=== PATIENT | male | born 1985 ===

== ENCOUNTER 2018-01-01 14:56 | Emergency (ER) | payer OTHER, SELFPAY ==
[2018-01-01 14:57] VITALS: BP 160/106; PULSE 99; RESP 20; TEMP 36.8; O2SAT 99
--- NOTE | 2018-01-01 15:04 | ED.MEDCLEAR ---
HPI - Medical Clearance <ROSALVA Pike - Last Filed: 01/01/18 17:10> General Chief complaint: Medical Clearance Stated complaint: abd pain Time Seen by Provider: 01/01/18 15:05 Source: patient and other (with police in hand cuffs) Mode of arrival: ambulatory Limitations: no limitations History of Present Illness HPI Narrative: shortly after being arrested pt started c/o abd pain pt states his stomach started hurting a few minutes ago, describes it as sharp, and it is his entire R side complaint: medical clearance requested Onset (ago): minute(s) Reason for Medical Clearance: other (half-way arrest) Place: other Traumatic Symptoms: denies traumatic injury Associated Symptoms: other (abd pain) Treatments Prior to Arrival: none Allergies Allergy/AdvReac Type Severity Reaction Status Date / Time No Known Drug Allergies Allergy Verified 01/01/18 14:57 Review of Systems <ROSALVA Pike - Last Filed: 01/01/18 17:10> Constitutional Reports as per HPI and Reports system reviewed and no additional complaints, except as docu Cardiovascular Denies chest pain and Denies dyspnea Respiratory Denies dyspnea Gastrointestinal Gastrointestinal: Reports as per HPI, Reports abdominal pain, Denies melena, Denies hematochezia, Denies constipation, Denies diarrhea and Reports vomiting (vomited yesterday, none today and says he ate) Genitourinary Denies dysuria (hawk with urination and that started yesterday) and Denies flank pain Musculoskeletal Denies back pain Exam <ROSALVA Pike - Last Filed: 01/01/18 17:10> Initial Vital Signs Initial Vital Signs: Vital Signs Temperature 98.2 F 01/01/18 14:57 Pulse Rate 99 H 01/01/18 14:57 Respiratory Rate 20 01/01/18 14:57 Blood Pressure 160/106 H 01/01/18 14:57 Pulse Oximetry 99 01/01/18 14:57 Const General: cooperative, healthy appearing, comfortable, well developed and well groomed Nutritional Appearance: average body habitus Orientation: alert, awake and oriented x3 HENMT Head: normal to inspection and normocephalic Ears: hearing grossly normal bilaterally, external ears normal, TM's normal bilaterally and mastoids normal Nose: external nose normal and nares normal Face and sinus: normal facial exam, sinuses nontender and face symmetric Mouth: oral mucosae normal, lip normal, tongue normal, oropharynx normal and moist mucous membranes Teeth and gingiva: dentition normal and gingiva normal Throat: posterior oropharynx normal, tonsils normal and uvula midline Eyes General: appearance normal, both eyes and all related structures Visual Jauregui: normal visual jauregui by confrontation Eyelids: eyelids normal Conjunctivae: conjunctivae normal Sclera: sclerae normal Pupils: PERRL EOM: EOM intact bilaterally Neck Neck: normal visual inspection, full ROM, no meningeal signs, trachea midline, supple and No lymphadenopathy Chest Chest: normal inspection of the chest Resp Effort & Inspection: normal respiratory effort and able to speak in complete sentences Auscultation: clear to auscultation bilaterally Cardio Rate: regular rate Rhythm: regular rhythm Heart Sounds: S1 normal and S2 normal GI Inspection: normal to inspection Palpation: soft Back/Spine/Pelvis Cervical Spine: cervical ROM normal Thoracic/Lumbar Spine: thoraco-lumbar ROM normal Skin General: no rashes or lesions noted, elasticity normal, turgor normal and dry skin Neuro General: alert, awake, oriented x3 and meningeal signs present Cognition: normal cognition Speech: speech normal Gait: normal gait Motor: muscle tone normal throughout Sensory Exam: no sensory deficits noted Extrem General: normal to inspection and full ROM Psych Appearance: grossly normal and well kempt Mental Status: mental status grossly normal Speech and Movement: speech and movement normal Mood: congruent mood Affect: normal affect Attitude: cooperative Thought Process: normal Thought Content: normal Judgment: judgment good <Nadege Campos MD - Last Filed: 01/01/18 20:18> Initial Vital Signs Initial Vital Signs: Vital Signs Temperature 98.2 F 01/01/18 14:57 Pulse Rate 99 H 01/01/18 14:57 Respiratory Rate 20 01/01/18 14:57 Blood Pressure 160/106 H 01/01/18 14:57 Pulse Oximetry 99 01/01/18 14:57 MDM - Medical Clearance <ROSALVA Pike - Last Filed: 01/01/18 17:10> Differential Diagnosis Likely urinary tract infection and other (abd pain, malingering, substance abuse, psychosomatic, pysch, gastroenteritis, medical clearance) Lab Data Urine Dip Bedside Urine Glucose Negative Bedside Urine Bilirubin - Negative Bedside Urine Ketone - Negative Urine Specific [place] 1.015 Bedside Urine Occult Blood - Negative Bedside Urine pH 7.5 Bedside Urine Protein - Negative Bedside Urine Urobilinogen - Negative Bedside Urine Nitrite - Negative Bedside Urine Leukocytes - Negative Esterase <Nadege Campos MD - Last Filed: 01/01/18 20:18> Lab Data Urine Dip Bedside Urine Glucose Negative Bedside Urine Bilirubin - Negative Bedside Urine Ketone - Negative Urine Specific [place] 1.015 Bedside Urine Occult Blood - Negative Bedside Urine pH 7.5 Bedside Urine Protein - Negative Bedside Urine Urobilinogen - Negative Bedside Urine Nitrite - Negative Bedside Urine Leukocytes - Negative Esterase Discharge Plan Departure Patient Disposition: Home Clinical Impression: Normal exam, Medical clearance for incarceration Discharge Date/Time: 01/01/18 15:19 Interventions: ED Discharge Assessment Last Done: 01/01/18 15:19 Instructions: Acute Abdominal Pain Activity Restrictions/Additional Instructions: Patient is medically cleared to go with police to half-way. Referrals: Fidel Hercules MD [Physician] - Angelica Shane PA-C [Physician] - Angelica Pacheco FNP-BC [Advanced Account Developer] - (as needed) Meera Sorensen PA-C [Advanced Account Developer] - Oswaldo Gilliam PA-C [Advanced Account Developer] -
--- NOTE | 2018-01-01 15:13 | ED_ITS ---
HPI - Medical Clearance <ROSALVA Pike - Last Filed: 01/01/18 17:10> General Chief complaint: Medical Clearance Stated complaint: abd pain Time Seen by Provider: 01/01/18 15:05 Source: patient and other (with police in hand cuffs) Mode of arrival: ambulatory Limitations: no limitations History of Present Illness HPI Narrative: shortly after being arrested pt started c/o abd pain pt states his stomach started hurting a few minutes ago, describes it as sharp, and it is his entire R side complaint: medical clearance requested Onset (ago): minute(s) Reason for Medical Clearance: other ([facility] arrest) Place: other Traumatic Symptoms: denies traumatic injury Associated Symptoms: other (abd pain) Treatments Prior to Arrival: none Allergies Allergy/AdvReac Type Severity Reaction Status Date / Time No Known Drug Allergies Allergy Verified 01/01/18 14:57 Review of Systems <ROSALVA Pike - Last Filed: 01/01/18 17:10> Constitutional Reports as per HPI and Reports system reviewed and no additional complaints, except as docu Cardiovascular Denies chest pain and Denies dyspnea Respiratory Denies dyspnea Gastrointestinal Gastrointestinal: Reports as per HPI, Reports abdominal pain, Denies melena, Denies hematochezia, Denies constipation, Denies diarrhea and Reports vomiting ( vomited yesterday, none today and says he ate) Genitourinary Denies dysuria (hawk with urination and that started yesterday) and Denies flank pain Musculoskeletal Denies back pain Exam <ROSALVA Pike - Last Filed: 01/01/18 17:10> Initial Vital Signs Initial Vital Signs: Vital Signs Temperature 98.2 F 01/01/18 14:57 Pulse Rate 99 H 01/01/18 14:57 Respiratory Rate 20 01/01/18 14:57 Blood Pressure 160/106 H 01/01/18 14:57 Pulse Oximetry 99 01/01/18 14:57 Const General: cooperative, healthy appearing, comfortable, well developed and well groomed Nutritional Appearance: average body habitus Orientation: alert, awake and oriented x3 HENMT Head: normal to inspection and normocephalic Ears: hearing grossly normal bilaterally, external ears normal, TM's normal bilaterally and mastoids normal Nose: external nose normal and nares normal Face and sinus: normal facial exam, sinuses nontender and face symmetric Mouth: oral mucosae normal, lip normal, tongue normal, oropharynx normal and moist mucous membranes Teeth and gingiva: dentition normal and gingiva normal Throat: posterior oropharynx normal, tonsils normal and uvula midline Eyes General: appearance normal, both eyes and all related structures Visual Jauregui: normal visual jauregui by confrontation Eyelids: eyelids normal Conjunctivae: conjunctivae normal Sclera: sclerae normal Pupils: PERRL EOM: EOM intact bilaterally Neck Neck: normal visual inspection, full ROM, no meningeal signs, trachea midline, supple and No lymphadenopathy Chest Chest: normal inspection of the chest Resp Effort & Inspection: normal respiratory effort and able to speak in complete sentences Auscultation: clear to auscultation bilaterally Cardio Rate: regular rate Rhythm: regular rhythm Heart Sounds: S1 normal and S2 normal GI Inspection: normal to inspection Palpation: soft Back/Spine/Pelvis Cervical Spine: cervical ROM normal Thoracic/Lumbar Spine: thoraco-lumbar ROM normal Skin General: no rashes or lesions noted, elasticity normal, turgor normal and dry skin Neuro General: alert, awake, oriented x3 and meningeal signs present Cognition: normal cognition Speech: speech normal Gait: normal gait Motor: muscle tone normal throughout Sensory Exam: no sensory deficits noted Extrem General: normal to inspection and full ROM Psych Appearance: grossly normal and well kempt Mental Status: mental status grossly normal Speech and Movement: speech and movement normal Mood: congruent mood Affect: normal affect Attitude: cooperative Thought Process: normal Thought Content: normal Judgment: judgment good <Nadege Campos MD - Last Filed: 01/01/18 20:18> Initial Vital Signs Initial Vital Signs: Vital Signs Temperature 98.2 F 01/01/18 14:57 Pulse Rate 99 H 01/01/18 14:57 Respiratory Rate 20 01/01/18 14:57 Blood Pressure 160/106 H 01/01/18 14:57 Pulse Oximetry 99 01/01/18 14:57 MDM - Medical Clearance <ROSALVA Pike - Last Filed: 01/01/18 17:10> Differential Diagnosis Likely urinary tract infection and other (abd pain, malingering, substance abuse , psychosomatic, pysch, gastroenteritis, medical clearance) Lab Data Urine Dip Bedside Urine Glucose Negative Bedside Urine Bilirubin - Negative Bedside Urine Ketone - Negative Urine Specific [place] 1.015 Bedside Urine Occult Blood - Negative Bedside Urine pH 7.5 Bedside Urine Protein - Negative Bedside Urine Urobilinogen - Negative Bedside Urine Nitrite - Negative Bedside Urine Leukocytes - Negative Esterase <Nadege Campos MD - Last Filed: 01/01/18 20:18> Lab Data Urine Dip Bedside Urine Glucose Negative Bedside Urine Bilirubin - Negative Bedside Urine Ketone - Negative Urine Specific [place] 1.015 Bedside Urine Occult Blood - Negative Bedside Urine pH 7.5 Bedside Urine Protein - Negative Bedside Urine Urobilinogen - Negative Bedside Urine Nitrite - Negative Bedside Urine Leukocytes - Negative Esterase Discharge Plan Departure Patient Disposition: Home Clinical Impression: Normal exam, Medical clearance for incarceration Discharge Date/Time: 01/01/18 15:19 Interventions: ED Discharge Assessment Last Done: 01/01/18 15:19 Instructions: Acute Abdominal Pain Activity Restrictions/Additional Instructions: Patient is medically cleared to go with police to [facility]. Referrals: Fidel Hercules MD [Physician] - Angelica Shane PA-C [Physician] - Angelica Pacheco FNP-BC [Advanced Shift Engineer] - (as needed) Meera Sorensen PA-C [Advanced Shift Engineer] - Oswaldo Gilliam PA-C [Advanced Shift Engineer] -
[2018-01-01 15:19] VITALS: BP 125/79; PULSE 90; RESP 20; O2SAT 100
== END 2018-01-01 15:19 | disposition home or self-care (01) ==
LOC: ED 15:32
PROVIDERS: Emergency Provider Nurse Practitioner
DX: Z00.8 Encounter for other general examination (principal); R10.9 Unspecified abdominal pain
CPT/HCPCS: 81003; 99282; 99283